=== PATIENT | male | born 1995 ===

== ENCOUNTER 2019-04-29 15:10 | Emergency (ER) | payer BC ==
[2019-04-29] MEDS ORDERED: Ondansetron ODT 4 MG TAB ONE (15:17)
== END 2019-04-29 16:36 | disposition home or self-care (01) ==
LOC: ERS 15:10
DX: J11.1 Influenza due to unidentified influenza virus with other respiratory manifestations (principal); R11.2 Nausea with vomiting, unspecified; J45.909 Unspecified asthma, uncomplicated
CPT/HCPCS: 99283; Q0162